=== PATIENT | male | born 1975 | race Caucasian/White ===

== ENCOUNTER → 2017-03-01 | Outpatient (CLI) | payer OTHER ==
[2017-03-03 14:06] LABS: HEPATITIS C PCR QUANTITATION HCV Not Detected IU/mL (.)
== END | disposition home or self-care (01) ==
LOC: LAB 13:20
PROVIDERS: ATTEND Internal Medicine Hematology & Oncology
DX: Z11.59 Encounter for screening for other viral diseases (principal)
CPT/HCPCS: 36415; 84460; 86803; 87522

== ENCOUNTER 2017-05-27 19:41 | Emergency (ER) | payer OTHER ==
[~2017-05-27] VITALS: Ht 185.4 cm; Wt 84.0 kg
[2017-05-27 19:59] VITALS: BP 130/89
[2017-05-27] MEDS ORDERED: ATOR20TA PO (20:02)
[2017-05-27 21:05] LABS: HIV 1&2 ANTIBODY SCREEN Nonreactive (Nonreactive); HIV-1 p24 ANTIGEN Nonreactive (Nonreactive)
[2017-05-27 21:25] LABS: HEP B SURF. AB > 1000.0 mIU/mL (0.0-10.0)
== END 2017-05-27 20:38 | disposition home or self-care (01) ==
LOC: ED 20:32
DX: S60.412A Abrasion of right middle finger, initial encounter (principal); E78.5 Hyperlipidemia, unspecified; X58.XXXA Exposure to other specified factors, initial encounter; Y93.89 Activity, other specified; Y92.89 Other specified places as the place of occurrence of the external cause; Y99.8 Other external cause status
CPT/HCPCS: 36415; 86703; 86705; 86706; 86803; 87340; 87899; 99284; G0435

== ENCOUNTER → 2017-06-02 | Outpatient (CLI) | payer OTHER ==
[~2017-06-02] MED LIST: ATOR20TA PO
== END | disposition home or self-care (01) ==
LOC: LAB 12:29
PROVIDERS: ATTEND Internal Medicine Hematology & Oncology
DX: Z11.59 Encounter for screening for other viral diseases (principal)
CPT/HCPCS: 36415; 84460; 87522

== ENCOUNTER 2018-12-05 19:50 | Emergency (ER) | payer OTHER ==
[~2018-12-05] VITALS: Ht 185.4 cm; Wt 81.8 kg
[2018-12-05 19:53] VITALS: BP 132/94
[2018-12-05] MEDS ORDERED: LIDOCAINE 1%, 10ML INFIL ONE (20:00)
[2018-12-05] MEDS ORDERED: LIDOCAINE-MPF 1%, 5ML ONE (20:14)
[2018-12-05] MEDS ORDERED: DIPH,PERTUSS(ACELL),TET VAC/PF 0.5 ML IM-VACC ONE ×2 (20:26→20:30)
[2018-12-05] MEDS ORDERED: BACITRACIN ZINC OINT 500U/GM, 0.9 GM ONE (20:45)
== END 2018-12-05 20:57 | disposition home or self-care (01) ==
LOC: ED 20:51
DX: S61.216A Laceration without foreign body of right little finger without damage to nail, initial encounter (principal); E78.5 Hyperlipidemia, unspecified; W26.0XXA Contact with knife, initial encounter; Y93.89 Activity, other specified; Y92.89 Other specified places as the place of occurrence of the external cause; Y99.8 Other external cause status
CPT/HCPCS: 12041; 90471; 90715; 99284

== ENCOUNTER 2021-06-17 08:01 | Outpatient (CLI) | payer OTHER | END 2021-06-17 23:59 | disposition home or self-care (01) | LOC: LAB 08:01 | PROVIDERS: ATTEND Family Medicine | DX: Z00.00 Encounter for general adult medical examination without abnormal findings (principal); R53.83 Other fatigue ==